=== PATIENT | female | born 1980 | race Caucasian/White ===

== ENCOUNTER 2017-04-01 16:20 | Emergency (ER) | payer SELFPAY ==
[~2017-04-01] VITALS: Ht 160 cm; Wt 77.1 kg
[2017-04-01 16:40] VITALS: BP 128/81
[2017-04-01] MEDS ORDERED: HYDROcodone/Acetamin 7.5/325 tab ORAL ONE (17:00)
[2017-04-01 17:15] LABS: APPEARANCE,URINE CLEAR; BILIRUBIN, URINE NEGATIVE (NEGATIVE); COLOR,URINE PALE YELLOW; GLUCOSE, URINE (UA) NEGATIVE (NEGATIVE); KETONES,URINE NEGATIVE (NEGATIVE); LEUKOCYTE ESTERASE ,URINE 3+ (NEGATIVE); NITRITE,URINE POSITIVE (NEGATIVE); PH,URINE 6.5 (4.5-8.0); PROTEIN,URINE NEGATIVE (NEGATIVE); UROBILINOGEN,URINE NORMAL MG/DL (0.0-1.0)
[2017-04-01] MEDS ORDERED: Lidocaine 2% Visc 15ml soln ORAL ONE (17:45)
--- NOTE | 2017-04-01 18:00 | Emergency Room Report ---
History of Present Illness General Chief Complaint: Flu Like Symptoms Source: Patient Present Illness HPI 37-year-old female presents to the emergency department complaining of sore throat, cough, urinary frequency, dysuria and fevers since yesterday. Patient reports history of UTI in the past and states urinary symptoms are similar. She also reports generalized body aches denies low back pain. Patient reports pain in the rib cage with coughing. Denies productive sputum. 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 Allergies: Coded Allergies: CHLORPROMAZINE (Verified Allergy, Unknown, 04/01/17) SULFAMETHOXAZOLE (Verified Allergy, Unknown, 04/01/17) TRIMETHOPRIM (Verified Allergy, Unknown, 04/01/17) Patient History Past Medical History: see triage record Past Surgical History: none Pertinent Family History: none Now: No Reviewed Nursing Documentation: PMH: Agreed, PSxH: Agreed Nursing Documentation-PMH Past Medical History: No History, Except For Review of Systems All Other Systems: negative except mentioned in HPI Physical Exam Vital Signs Date Time Temp Pulse Resp B/P (MAP) Pulse Ox O2 Delivery O2 Flow Rate FiO2 04/01/17 16:30 100.2 108 24 123/80 98 Room Air 100.2 Sp02 EP Interpretation: reviewed, normal General Appearance: no apparent distress, alert, GCS 15, non-toxic Head: normocephalic, atraumatic Eyes: bilateral eye normal inspection, bilateral eye PERRL ENT: hearing grossly normal, normal voice, TMs + canals normal, uvula midline, moist mucus membranes, nasal congestion, pharyngeal erythema Neck: full range of motion, no meningismus, no bony tend Respiratory: chest non-tender, lungs clear, normal breath sounds, no rhonchi, no wheezing, speaking full sentences Cardiovascular #1: regular rate, rhythm Gastrointestinal: normal bowel sounds, non tender, soft Genitourinary: normal inspection, no CVA tenderness Musculoskeletal: back normal, gait/station normal, normal range of motion, non- tender Neurologic: alert, oriented x3, responsive, motor strength/tone normal, sensory intact, speech normal, grossly normal Psychiatric: judgement/insight normal Skin: normal color, no rash, warm/dry, well hydrated Lymphatic: no adenopathy Medical Decision Making PA Attestation Dr. liang is my supervising Physician whom patient management has been discussed with. Diagnostic Impression: Primary Impression: Urinary tract infection Qualified Codes: N30.01 - Acute cystitis with hematuria Additional Impressions: Viral syndrome Upper respiratory infection Qualified Codes: J06.9 - Acute upper respiratory infection, unspecified Sore throat (viral) ER Course 37-year-old female presents to the emergency department complaining of sore throat, cough, urinary frequency, dysuria and fevers since yesterday. Patient reports history of UTI in the past and states urinary symptoms are similar. She also reports generalized body aches denies low back pain. Patient reports pain in the rib cage with coughing. Denies productive sputum. 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 Ddx considered but are not limited to URI, pneumonia, PE, strep pharyngitis, meningitis, influenza, OM/OE, UTI, Pyelo, Renal Calculi just to name a few. Vital signs: mild tachycardia at triage but normalized after pain medications. Pt. by definition is afebrile , the remaining VS are WNL H&PE are most consistent with Viral Syndrome/ URI and possible UTI, no CVA to suggest pyelo. ORDERS: -UA: positive for UTI ED INTERVENTIONS: -Macrobid PO -[place] PO -Viscous Lidocaine 2% for ST. -Patient was given a transitional housing as well as shelters for women. DISCHARGE: At this time pt. is stable for d/c to home. Will provide printed patient care instructions, and any necessary prescriptions. Care plan and follow up instructions have been discussed with the patient prior to discharge. Labs Test 04/01/17 16:28 Urine Color Pale yellow Urine Appearance Clear Urine pH 6.5 (4.5-8.0) Urine Specific [place] 1.010 (1.005-1.035) Urine Protein Negative (NEGATIVE) Urine Glucose (UA) Negative (NEGATIVE) Urine Ketones Negative (NEGATIVE) Urine Occult Blood 1+ (NEGATIVE) Urine Nitrite Positive (NEGATIVE) Urine Bilirubin Negative (NEGATIVE) Urine Urobilinogen Normal MG/DL (0.0-1.0) Urine Leukocyte Esterase 3+ (NEGATIVE) Urine RBC 2-4 /HPF (0 - 2) Urine WBC 10-15 /HPF (0 - 2) Urine Squamous Epithelial Cells Few /LPF (NONE/OCC) Urine Amorphous Sediment Few /LPF (NONE) Urine Bacteria Moderate /HPF (NONE) Urine HCG, Qualitative Negative Last Vital Signs Date Time Temp Pulse Resp B/P (MAP) Pulse Ox O2 Delivery O2 Flow Rate FiO2 04/01/17 17:03 100.2 04/01/17 16:30 108 24 123/80 98 Room Air Disposition: HOME, SELF-CARE Condition: Stable Scripts Phenazopyridine Hcl* (PYRIDIUM*) 200 Mg Tablet 200 MG ORAL THREE TIMES A DAY, #3 TAB 0 Refills Prov: Felicitas Villagomez 04/01/17 Guaifenesin/Dextromethorphan (ROBITUSSIN COUGH-CHEST DM LIQ) 237 Ml Liquid 5 ML PO Q6HR, #237 ML Prov: Felicitas Villagomez 04/01/17 Acetaminophen* (TYLENOL EXTRA STRENGTH*) 500 Mg Tablet 500 MG ORAL Q6H Y for Mild Pain/Temp > 100.5, #20 TAB 0 Refills Prov: Felicitas Villagomez 04/01/17 Nitrofurantoin Monohyd/M-Cryst* (MACROBID 100 MG*) 100 Mg Capsule 100 MG ORAL EVERY 12 HOURS for 5 Days, #10 CAP Prov: Felicitas Villagomez 04/01/17 Referrals: NOT CHOSEN IPA/MD,REFERRING (PCP) Departure Forms: Return to Work Return to Work Date: Apr 03, 2017 Work Restrictions: None Return to Full Activity: Apr 03, 2017 Patient Instructions: Medical Screening Exam, Upper Respiratory Infection, Adult, [id number], Urinary Tract Infection, [id number] Additional Instructions: Take medications as directed. Follow up with a Primary Care Provider in 3-5 days, even if your symptoms have resolved. --Please review list of primary care clinics, if you do not already have a primary care provider Return sooner to ED if new symptoms occur, or current symptoms become worse. - Please note that this Emergency Department Report was dictated using [employer] cut off tender technology software, occasionally this can lead to erroneous entry secondary to interpretation by the dictation equipment. Felicitas Villagomez Apr 01, 2017 18:00
[2017-04-01] MEDS ORDERED: PHENAZOPYRIDIN200 MG ORAL (18:04)
[2017-04-01] MEDS ORDERED: ROBITUSSIN COU237 M1 PO (18:04)
[2017-04-01] MEDS ORDERED: NITROFURANTOIN100 M2 ORAL (18:04)
[2017-04-01] MEDS ORDERED: TYLENOL EXTRA500 MG ORAL (18:04)
[2017-04-01 18:13] VITALS: BP 123/80
[2017-04-05] MEDS ORDERED: CEPHALEXIN500 MG ORAL (14:24)
== END 2017-04-01 19:43 | disposition home or self-care (01) ==
LOC: EMR 16:40
DX: N39.0 Urinary tract infection, site not specified (principal); J06.9 Acute upper respiratory infection, unspecified; J02.9 Acute pharyngitis, unspecified; B34.9 Viral infection, unspecified; Z88.2 Allergy status to sulfonamides; Z88.8 Allergy status to other drugs, medicaments and biological substances
CPT/HCPCS: 81003; 81025; 87086; 87181; 99284